=== PATIENT | female | born 1980 | race Caucasian/White ===

== ENCOUNTER → 2017-03-09 | Outpatient (CLI) | payer BC | LOC: LAB 12:00 | DX: E03.4 Atrophy of thyroid (acquired) (principal) ==

== ENCOUNTER → 2020-08-07 | Outpatient (CLI) | payer BC | LOC: LAB 07:21 | DX: E03.4 Atrophy of thyroid (acquired) (principal) ==

== ENCOUNTER → 2021-12-11 | Outpatient (CLI) | payer BC | LOC: RAD 08:22 | DX: M25.561 Pain in right knee (principal) ==

== ENCOUNTER 2022-03-18 08:00 | Outpatient (RCR) | payer BC | END 2022-04-15 | disposition home or self-care (01) | LOC: PT | DX: M25.561 Pain in right knee (principal) ==

== ENCOUNTER 2022-05-19 08:00 | Outpatient (RCR) | payer BC | END 2022-06-16 | disposition home or self-care (01) | LOC: PT | DX: M23.361 Other meniscus derangements, other lateral meniscus, right knee (principal) ==

== ENCOUNTER → 2023-07-28 | Outpatient (CLI) | payer BC ==
[2023-07-28 07:53] LABS: MAGNESIUM 1.88 mg/dL (1.60-2.60)
[2023-07-28 16:58] LABS: T3 TOTAL 78 ng/dL (35-193)
== END ==
LOC: LAB 07:11
PROVIDERS: Physician Assistant
DX: E83.42 Hypomagnesemia (principal); R89.1 Abnormal level of hormones in specimens from other organs, systems and tissues

== ENCOUNTER → 2023-10-27 | Outpatient (CLI) | payer BC ==
[2023-10-27 08:10] LABS: ALBUMIN 3.8 g/dL (3.5-5.0)
[2023-10-27 08:12] LABS: CALCIUM 9.2 mg/dL (8.3-10.5)
[2023-10-27 08:13] LABS: TOTAL PROTEIN 5.8 g/dL (6.4-8.3)
[2023-10-27 08:15] LABS: TOTAL BILIRUBIN 0.5 mg/dL (0.2-1.2)
== END ==
LOC: LAB 07:47
PROVIDERS: Physician Assistant
DX: B35.1 Tinea unguium (principal)

== ENCOUNTER → 2024-01-24 | Outpatient (CLI) | payer BC ==
[2024-01-24 08:12] LABS: ALBUMIN 4.1 g/dL (3.5-5.0)
[2024-01-24 08:14] LABS: TOTAL PROTEIN 6.5 g/dL (6.4-8.3)
[2024-01-24 08:16] LABS: TOTAL BILIRUBIN 0.4 mg/dL (0.2-1.2)
== END ==
LOC: LAB 07:50
PROVIDERS: Physician Assistant
DX: B35.1 Tinea unguium (principal)